=== PATIENT | male | born 1955 | race Two or more races ===

== ENCOUNTER 2025-09-04 07:48 | Inpatient (IN) | payer BC, OTHER ==
[~2025-09-04] VITALS: Ht 167.6 cm; Wt 68.2 kg
--- NOTE | 2025-09-04 09:23 | DVH ---
CLINICAL HISTORY: ams TECHNIQUE: Single view of the chest was obtained. COMPARISON: None FINDINGS: The heart size and pulmonary vasculature are normal. The lungs are clear. IMPRESSION: NO ACUTE CARDIOPULMONARY PROCESS.
[2025-09-04 09:43] LABS: Hematocrit 45.6 % (41.0-53.0); Hemoglobin 15.3 g/dL (13.5-17.5); Mean Corpuscular Hemoglobin 30.9 pg (28.0-32.0); Mean Corpuscular Volume 92.0 fL (80.0-100.0); Nucleated Red Blood Cells % 0.1 %
[2025-09-04 09:54] VITALS: TEMP 97.4; O2SAT 96
[2025-09-04 09:54] LABS: Potassium 4.0 mmol/L (3.5-5.1); Sodium 141 mmol/L (136-145)
[2025-09-04 09:55] LABS: Anion Gap 7 (5-15); Calcium 9.0 mg/dL (8.7-10.4); Carbon Dioxide 25 mmol/L (20-31)
[2025-09-04 09:58] LABS: Chloride 109 mmol/L (98-107)
[2025-09-04 10:00] LABS: BUN/Creatinine Ratio 19.7 (10.0-20.0); Blood Urea Nitrogen 15 mg/dL (9-23)
[2025-09-04 10:04] LABS: Glucose 120 mg/dL (74-106)
--- NOTE | 2025-09-04 10:12 | ED.PDOC ---
History of Present Illness HPI Comments 70-year-old male brought in by ambulance with a prior medical history of PE four years ago and the chief complaint of chest pain. Patient reports on having sternal chest pain since last night associated with N/V x2 episodes of emesis. Patient was tachycardic on scene with a heart rate of 144, at rest. Patient's states on having had a 9/10 sternal chest pain in the which began again this morning while he was driving having him to thread puller and call 911. Patient notes on having dizziness as well. Denies any other symptoms at this time. Denies chills, fever, /D. No other associated symptoms, modifiers, recent injuries or sick contacts present at this time. Chief Complaint: Chest Pain Time Seen by MD: 10:00 Reviewed Notes: Nurses Notes, Medications, Allergies Allergies: Coded Allergies: NO KNOWN ALLERGIES (Unverified , 09/04/25) Information Source: Patient Mode of Arrival: EMS Severity: Moderate Timing: Hours Duration: Since onset, Hours Prehospital treatment: None Past Medical History PAST MEDICAL HISTORY: PE (Four years ago) Surgical History: Denies all surgeries Family History Family History: Reviewed,noncontributory to illness, Unknown Social History Smoker: Non-Smoker Alcohol: Denies ETOH Use Drugs: Denies Drug Use Lives In: Home Constitutional: denies: chills, diaphoresis, fatigue, fever, malaise, sweats, weakness, others EENTM: denies: blurred vision, double vision, ear bleeding, ear discharge, ear drainage, ear pain, ear ringing, eye pain, eye redness, hearing loss, mouth zach n, mouth swelling, nasal discharge, nose bleeding, nose congestion, nose pain, photophobia, tearing, throat pain, throat swelling, voice changes, others Respiratory: denies: cough, hemoptysis, orthopnea, SOB at rest, shortness of breath, SOB with excertion, stridor, wheezing, others Cardiovascular: reports: chest pain; denies: dizzy spells, diaphoresis, Dyspnea on exertion, edema, irregular heart beat, left arm pain, lightheadedness, palpitations, PND, syncope, others Gastrointestinal: denies: abdomen distended, abdominal pain, blood streaked bowels, constipated, diarrhea, dysphagia, difficulty swallowing, hematemesis, melena, nausea, poor appetite, poor fluid intake, rectal bleeding, rectal pain, vomiting, others Genitourinary: denies: burning, dysuria, flank pain, frequency, hematuria, incontinence, penile discharge, penile sore, pain, testicle pain, testicle swelling, urgency, others Neurological: reports: dizziness; denies: fainting, headache, left sided numbness, left sided weakness, numbness, paresthesia, pre-existing deficit, right sided numbness, right sided weakness, seizure, speech problems, tingling, tremors, weakness, others Musculoskeletal: denies: back pain, gout, joint pain, joint swelling, muscle pa in, muscle stiffness, neck pain, others Integumetry: denies: bruises, change in color, change in hair/nails, dryness, laceration, lesions, lumps, rash, wounds, others Allergic/Immunocompromised: denies: Difficulty Healing, Frequent Infections, Hives, Itching, others Hematologic/Lymphatic: denies: anemia, blood clots, easy bleeding, easy bruising, swollen glands, others Endocrine: denies: excessive hunger, excessive sweating, excessive thirst, excessive urination, flushing, intolerance to cold, intolerance to heat, unexplained weight gain, unexplained weight loss, others Psychiatric: denies: anxiety, bipolar disorder, depression, hopeless, panic disorder, schizophrenia, sleepless, suicidal, others All Other Systems: Reviewed and Negative Physical Exam General Appearance: No Apparent Distress, Normal HEENT: Normal ENT Inspection, Pharynx Normal, TMs Normal Neck: Full Range of Motion, Non-Tender, Normal, Normal Inspection Respiratory: Chest Non-Tender, Lungs Clear, No Accessory Muscle Use, No Respiratory Distress, Normal Breath Sounds Cardiovascular: No Edema, No JVD, No Murmur, No Gallop, Normal Peripheral Pulses, Regular Rate/Rhythm Breast Exam: Deferred Gastrointestinal: No Organomegaly, Non Tender, No Pulsatile Mass, Normal Bowel Sounds, Soft Genitalia: Deferred Pelvic: Deferred Rectal: Deferred Extremities: No calf tenderness, Normal capillary refill, Normal inspection, Normal range of motion, Non-tender, No pedal edema Musculoskeletal : Apperance: Normal Neurologic: Alert, printed circuit boards stripper etcher II-XII nml as Tested, No Motor Deficits, Normal Affect, Normal Mood, No Sensory Deficits Cerebellar Function: Normal Reflexes: Normal Skin: Dry, Normal Color, Warm Lymphatic: No Adenopathy Was a procedure done? Was a procedure done?: No Differential Dx Considerations may include: ACS, CVA, viral syndrome X-Ray, Labs, Meds, VS Vital Signs Date Time Temp Pulse Resp B/P (MAP) Pulse Ox O2 Delivery O2 Flow Rate FiO2 09/04/25 09:54 97.4 68 20 151/95 (113) 96 97.4 09/04/25 09:54 68 20 96 Room Air 09/04/25 08:14 97.9 70 15 163/86 93 97.9 09/04/25 07:54 73 Lab Test 09/04/25 09:15 Range/Units White Blood Count 7.2 4.4-10.8 10^3/uL Red Blood Count 4.96 4.5-5.90 10^6/uL Hemoglobin 15.3 13.5-17.5 g/dL Hematocrit 45.6 41.0-53.0 % Mean Corpuscular Volume 92.0 80.0-100.0 fL Mean Corpuscular Hemoglobin 30.9 28.0-32.0 pg Mean Corpuscular Hemoglobin Concent 33.6 32.0-36.0 g/dL Red Cell Distribution Width 13.9 11.8-14.3 % Platelet Count 290 140-450 10^3/uL Mean Platelet Volume 7.0 6.9-10.8 fL Neutrophils (%) (Auto) 70.5 37.0-80.0 % Lymphocytes (%) (Auto) 17.5 10.0-50.0 % Monocytes (%) (Auto) 8.4 0.0-12.0 % Eosinophils (%) (Auto) 2.5 0.0-7.0 % Basophils (%) (Auto) 1.1 0.0-2.0 % Neutrophils # (Auto) 5.1 1.6-8.6 10 ^3/uL Lymphocytes # (Auto) 1.3 0.4-5.4 10 ^3/uL Monocytes # (Auto) 0.6 0-1.3 10 ^3/uL Eosinophils # (Auto) 0.2 0-0.8 10 ^3/uL Basophils # (Auto) 0.1 0-0.2 10 ^3/uL Nucleated Red Blood Cells 0.1 % Sodium Level 141 136-145 mmol/L Potassium Level 4.0 3.5-5.1 mmol/L Chloride Level 109 H 98-107 mmol/L Carbon Dioxide Level 25 20-31 mmol/L Anion Gap 7 5-15 Blood Urea Nitrogen 15 9-23 mg/dL Creatinine 0.76 0.700-1.30 mg/dL Glomerular Filtration Rate Calc 98 >90 mL/min BUN/Creatinine Ratio 19.7 10.0-20.0 Serum Glucose 120 H 74-106 mg/dL Lactic Acid Level 0.9 0.4-2.0 mmol/L Calcium Level 9.0 8.7-10.4 mg/dL Troponin I High Sensitivity 6 </=54 ng/L Time of 1ST Reevaluation: 10:30 Reevaluation 1ST: Unchanged Patient Education/Counseling: Diagnosis, Treatment, Prognosis Family Education/Counseling: No Family Present SEPSIS Sepsis Screen Date sepsis recognized/suspect: Sep 04, 2025 Time Sepsis recognized/suspect: 749 Recent Procedure: No On Antibiotic Therapy: No Respiratory Rate >20: Yes Heart Rate >90: Yes Temp<36 C (96.8 F) or >38.3 C: No SBP <90 or MAP <65 mmHG: No New Acute Mental Status Change: No Is the patient on CPAP, BIPAP,: No Physician Orders Electrocardigram (09/04/25 08:17) Electrocardigram (09/04/25 09:17) Electrocardigram (09/04/25 11:17) Urinalysis (09/04/25 08:18) Chest Portable (09/04/25 08:18) Troponin-I Hs (09/04/25 09:18) Troponin-I Hs (09/04/25 11:18) Blood Culture (09/04/25 08:20) Vital Signs Date Time Temp Pulse Resp B/P (MAP) Pulse Ox O2 Delivery O2 Flow Rate FiO2 09/04/25 09:54 97.4 68 20 151/95 (113) 96 97.4 09/04/25 09:54 68 20 96 Room Air 09/04/25 08:14 97.9 70 15 163/86 93 97.9 09/04/25 07:54 73 Laboratory Tests Test 09/04/25 09:15 Lactic Acid Level 0.9 mmol/L (0.4-2.0) White Blood Count 7.2 10^3/uL (4.4-10.8) Departure 1 Departure Time of Disposition: 10:14 (? High Complexity ProblemsAcute illness posing threat to life or bodily function (suspected ACS)? High Complexity DataMultiple unique labsIndependent interpretation of X-ray and EKGDiscussion/coordination of care with admitting team? High Risk of Morbidity/MortalityDecision regarding hospitalizationCritical care performedPotential for sudden deteriorationMEDICAL DECISION MAKING (HIGH COMPLEXITY LEVEL 5):The patient presents with acute chest pain highly concerning for acute coronary syndrome (ACS), an acute illness with potential for significant morbidity and mortality. Despite a normal initial diagnostic workup, ACSincluding unstable anginacannot be excluded and remains the leading concern.Data Reviewed / Independent Interpretation:I independently reviewed and interpreted all labs and imaging. CBC and BMP were within normal limits. High-sensitivity troponin was normal, but a single normal value does not exclude ACS. Chest X-ray was independently reviewed by me and demonstrated no acute cardiopulmonary abnormalities. I independently reviewed the EKG, which showed normal sinus rhythm without ischemic changes.Despite these benign findings, the patient continues to describe exertional and pressure-like chest pain radiating in a pattern consistent with possible ACS. Unstable angina may present with normal biomarkers and nondiagnostic EKGs, and therefore this diagnosis remains a high-risk, active consideration.Differential Diagnosis & Management:The differential included ACS/unstable angina, pulmonary embolism, aortic dissection, pneumothorax, arrhythmia, and esophageal or musculoskeletal etiologies. Given the symptom pattern and cardiac risk profile, ACS remains the most concerning and cannot be safely ruled out in the ED. Serial troponins, telemetry monitoring, and further cardiac evaluationincluding possible stress testing or cardiology consultationare medically necessary.Risk / Disposition:Due to the ongoing concern for evolving cardiac ischemia, the inability to exclude ACS at this stage, and the potential for rapid deterioration, I determined that inpatient admission is required for continued monitoring and further diagnostic evaluation. I discussed the case and plan of care with the admitting inpatient team. The patient understands and agrees with admission.CRITICAL CARE TIME: Thirty-eight MINUTESA total of 38 minutes of critical care time was provided, exclusive of separately billable procedures. Time was spent in high-intensity evaluation and management due to the risk of sudden clinical deterioration from suspected ACS. Activities included:Continuous cardiac monitoringSerial reassessment of vital signs and symptomsIndependent interpretation of EKG and imagingReview and integration of diagnostic dataCoordination of care and discussion with nursing and the admitting serviceDevelopment of treatment and monitoring planFrequent bedside reassessmentsCritical care services were medically necessary due to the immediate potential for life-threatening cardiac ischemia.) Impression: Primary Impression: Acute chest pain Additional Impression: Shortness of breath Disposition: ADMITTED INPATIENT Admit to: Tele Condition: Guarded Critical Care Note Critical Care Time?: Yes Stability Stability form required: No Heart Score Heart Score: Heart Score Response (Comments) Value History Moderate Suspicious 1 EKG Repolarization Disturb 1 Age >65 2 Risk Factors >3 or Hx ASHD 2 Troponin 1-2 x's Normal limit 1 Total 7 I personally scribed for PER HURST MD ([email or web address]) on 09/04/25 at 10:12. El ectronically submitted by Tim Rene ([email or web address]). PER HURST MD Sep 04, 2025 10:12
[2025-09-04] MEDS: ONDANSETRON HCL 4 MG/2 ML VIAL IV ONE (10:37)
[2025-09-04 10:38] VITALS: BP 151/95; PULSE 68; RESP 20
[2025-09-04] MEDS: MORPHINE SULFATE 4 MG/ML SYR/VIAL IV ONE (10:38)
--- NOTE | 2025-09-04 11:31 | DVHHP2 ---
Admitting Diagnosis: Chest pain History of Present Illness 70-year-old male brought in by ambulance with a prior medical history of PE four years ago and the chief complaint of chest pain. Patient reports on having sternal chest pain since last night associated with N/V x2 episodes of emesis. Patient was tachycardic on scene with a heart rate of 144, at rest. Patient's states on having had a 9/10 sternal chest pain in the which began again this morning while he was driving having him to pipe puller and call 911. Patient notes on having dizziness as well. Denies any other symptoms at this time. Denies chills, fever, /D. No other associated symptoms, modifiers, recent injuries or sick contacts present at this time. PAST MEDICAL HISTORY: PE (Four years ago) Surgical History: Denies all surgeries Family History Family History: Reviewed,noncontributory to illness, Unknown Social History Smoker: Non-Smoker Alcohol: Denies ETOH Use Drugs: Denies Drug Use Lives In: Home Allergies: Coded Allergies: NO KNOWN ALLERGIES (Unverified , 09/04/25) Current Medications Current Medications Medications (Trade) Dose Ordered Sig/Alycia Route PRN Reason Start Time Stop Time Status Last Admin Sodium Chloride (Saline Lock Ns) 10 ml Q8HR IV 09/04/25 14:00 Docusate Sodium (Colace Capsule) 100 mg BIDPRN PRN PO FOR CONSTIPATION 09/04/25 11:45 Acetaminophen (Tylenol Tablet) 650 mg Q6HP PRN PO PAIN SCALE 1-3 OR TEMP>100.4 09/04/25 11:45 Acetaminophen/ Hydrocodone Bitart (Isabella 5/325MG Tab) 1 tab Q4HP PRN PO MODERATE PAIN (4-6 PAIN SCALE) 09/04/25 11:45 Hydromorphone HCl (Dilaudid Injection) 0.5 mg Q4HP PRN IV SEVERE PAIN (7-10 PAIN SCALE) 09/04/25 11:45 Ondansetron HCl (Zofran) 4 mg Q4HP PRN IV NAUSEA / VOMITING 09/04/25 11:45 Enoxaparin Sodium (Lovenox) 40 mg DAILY SC 09/05/25 10:00 Nitroglycerin (Ntrostat Sublingual) 0.4 mg Q5MINP PRN SL FOR CHEST PAIN 09/04/25 11:45 Morphine Sulfate 2 mg Q30M PRN IV FOR CHEST PAIN 09/04/25 11:45 Vital Signs Vital Signs Date Time Temp Pulse Resp B/P (MAP) Pulse Ox O2 Delivery O2 Flow Rate FiO2 09/04/25 10:38 68 20 151/95 09/04/25 09:54 97.4 96 97.4 09/04/25 09:54 Room Air Physical Exam General-62 years old male, well nourished well developed. No apparent distress HEENT-atraumatic normocephalic heart-regular rate and rhythm Lungs clear to auscultate Soft nontender nondistended Musculoskeletal-no edema cyanosis Neuro-AO x3, no focal deficits SEPSIS Sepsis Screen Date sepsis recognized/suspect: Sep 04, 2025 Time Sepsis recognized/suspect: 749 Recent Procedure: No On Antibiotic Therapy: No Respiratory Rate >20: Yes Heart Rate >90: Yes Temp<36 C (96.8 F) or >38.3 C: No SBP <90 or MAP <65 mmHG: No New Acute Mental Status Change: No Is the patient on CPAP, BIPAP,: No Physician Orders Electrocardigram (09/04/25 08:17) Electrocardigram (09/04/25 09:17) Electrocardigram (09/04/25 11:17) Urinalysis (09/04/25 08:18) Chest Portable (09/04/25 08:18) Troponin-I Hs (09/04/25 11:18) Blood Culture (09/04/25 08:20) Admit (09/04/25 11:31) Code Status (09/04/25 11:31) Vital Signs .PER UNIT PROTOCOL (09/04/25 11:31) Review Orders With Adm.Md (09/04/25 11:31) Encourage Activity As Tolerate (09/04/25 11:31) Sodium Chloride Lock (Saline Lock Ns) (09/04/25 14:00) Docusate Sodium Capsule (Colace Capsule) (09/04/25 11:45) Acetaminophen Tablet (Tylenol Tablet) (09/04/25 11:45) Notify Md Of Changes From Base (09/04/25 11:31) Advance Directive (09/04/25 11:31) Patient Condition (09/04/25 11:31) Allergies (09/04/25 11:31) Hydrocodone-Acet 5/325mg Tab (Isabella 5/32 (09/04/25 11:45) Hydromorphone Injection (Dilaudid Inject (09/04/25 11:45) Ondansetron Hcl (Zofran) (09/04/25 11:45) Enoxaparin Sodium (Lovenox) (09/05/25 10:00) Nitroglycerin Sublingual (Ntrostat Subli (09/04/25 11:45) Morphine Sulfate Injection (09/04/25 11:45) Stat Ekg For Chest Pain (09/04/25 11:31) Notify Md Of Changes From Base (09/04/25 11:31) Civilian Technician For 24 Hours (09/04/25 11:31) Emergency Dysrhythmia Protocol (09/04/25 11:31) Rhythm Strips Once Every Shift (09/04/25 11:31) Oxygen By Nasal Cannula (09/04/25 11:31) Echo 2d Mode Cardiac Dop (09/04/25 11:31) Vital Signs Date Time Temp Pulse Resp B/P (MAP) Pulse Ox O2 Delivery O2 Flow Rate FiO2 09/04/25 10:38 68 20 151/95 09/04/25 09:54 97.4 68 20 151/95 (113) 96 97.4 09/04/25 09:54 68 20 96 Room Air 09/04/25 08:14 97.9 70 15 163/86 93 97.9 09/04/25 07:54 73 Laboratory Tests Test 09/04/25 09:15 Lactic Acid Level 0.9 mmol/L (0.4-2.0) White Blood Count 7.2 10^3/uL (4.4-10.8) Medications Medications Dose Ordered Sig/Alycia Route Start Time Stop Time Status Last Admin Dose Admin Aspirin 324 mg ONCE ONCE PO 09/04/25 10:15 09/04/25 10:24 DC 09/04/25 10:36 Morphine Sulfate 4 mg ONCE ONCE IV 09/04/25 10:15 09/04/25 10:24 DC 09/04/25 10:38 Ondansetron HCl 4 mg ONCE ONCE IV 09/04/25 10:15 09/04/25 10:24 DC 09/04/25 10:37 Results Labs Test 09/04/25 10:57 09/04/25 09:15 Range/Units Troponin I High Sensitivity 6 </=54 ng/L White Blood Count 7.2 4.4-10.8 10^3/uL Red Blood Count 4.96 4.5-5.90 10^6/uL Hemoglobin 15.3 13.5-17.5 g/dL Hematocrit 45.6 41.0-53.0 % Mean Corpuscular Volume 92.0 80.0-100.0 fL Mean Corpuscular Hemoglobin 30.9 28.0-32.0 pg Mean Corpuscular Hemoglobin Concent 33.6 32.0-36.0 g/dL Red Cell Distribution Width 13.9 11.8-14.3 % Platelet Count 290 140-450 10^3/uL Mean Platelet Volume 7.0 6.9-10.8 fL Neutrophils (%) (Auto) 70.5 37.0-80.0 % Lymphocytes (%) (Auto) 17.5 10.0-50.0 % Monocytes (%) (Auto) 8.4 0.0-12.0 % Eosinophils (%) (Auto) 2.5 0.0-7.0 % Basophils (%) (Auto) 1.1 0.0-2.0 % Neutrophils # (Auto) 5.1 1.6-8.6 10 ^3/uL Lymphocytes # (Auto) 1.3 0.4-5.4 10 ^3/uL Monocytes # (Auto) 0.6 0-1.3 10 ^3/uL Eosinophils # (Auto) 0.2 0-0.8 10 ^3/uL Basophils # (Auto) 0.1 0-0.2 10 ^3/uL Nucleated Red Blood Cells 0.1 % Sodium Level 141 136-145 mmol/L Potassium Level 4.0 3.5-5.1 mmol/L Chloride Level 109 H 98-107 mmol/L Carbon Dioxide Level 25 20-31 mmol/L Anion Gap 7 5-15 Blood Urea Nitrogen 15 9-23 mg/dL Creatinine 0.76 0.700-1.30 mg/dL Glomerular Filtration Rate Calc 98 >90 mL/min BUN/Creatinine Ratio 19.7 10.0-20.0 Serum Glucose 120 H 74-106 mg/dL Lactic Acid Level 0.9 0.4-2.0 mmol/L Calcium Level 9.0 8.7-10.4 mg/dL Primary Diagnosis Chest pain rule out ACS Plan Troponin negative EKG shows no ST segment changes Check echo of the heart and her status for abnormal wall motion Cardiac diet Resume home meds Full code Lovenox for DVT prophylaxis No GI prophylaxis needed Plan discussed with: Patient Problems List: (1) Acute chest pain Status: Acute Date of Service: Sep 04, 2025 Billing Provider: JUANITO GOMEZ MD Common Visit Codes: [id number] INP/OBS CARE (HIGH) JUANITO GOMEZ MD Sep 04, 2025 11:31
[2025-09-04] MEDS ORDERED: DOCUSATE SOD 100 MG CAP PO PRN (11:45)
[2025-09-04] MEDS ORDERED: NITROGLYCERIN 0.4 MG SL TAB SL PRN (11:45)
[2025-09-04] MEDS ORDERED: HYDROmorphone HCL 2 MG/ML VL/or syr IV PRN (11:45)
[2025-09-04] MEDS ORDERED: ACETAMINOPHEN 325 MG TAB PO PRN (11:45)
[2025-09-04] MEDS ORDERED: MORPHINE SULFATE INJ 2 MG/ml SYRG IV PRN (11:45)
[2025-09-04] MEDS ORDERED: ONDANSETRON HCL 4 MG/2 ML VIAL IV PRN (11:45)
[2025-09-04] MEDS ORDERED: HYDROcodone-ACET 5/325MG TAB PO PRN (11:45)
[2025-09-04] MEDS ORDERED: SODIUM CHLOR 0.9% PF (SALINE LOCK) 10ML VIAL/SYR IV SCH (14:00)
[2025-09-04 14:33] LABS: Urine Protein, UAD Negative (Negative)
[2025-09-05] MEDS ORDERED: ENOXAPARIN SOD 40 MG/0.4 ML SYRINGE SC SCH (10:00)
--- NOTE | 2025-09-06 09:28 | ECG ---
[facility] Test Date: 2025-09-04 Test Time: 07:54:04 Pat Name: NELLA SOLIS Department: ED Room: [address] [place] [address] Gender: M Fws Faculty Assistant: taqueria : [id number] Requested By: PER HURST Order Number: [id number] Reading MD: Piero Pardo Measurements Intervals [place] Rate: 73 P: 67 VT: 183 QRS: 45 QRSD: 92 T: 47 QT: 393 QTc: 433 Interpretive Statements Sinus rhythm Electronically Signed On 09-07-2025 17:49:55 PST by Piero Pardo Please click the below link to view image of tracing.
== END 2025-09-04 14:08 | disposition left against medical advice (07) | DRG 311 ==
LOC: ER 07:48 → EDBD 07:48 → OVERFLOW 11:31
PROVIDERS: ADMIT Internal Medicine; ATTEND Internal Medicine
DX: I24.9 Acute ischemic heart disease, unspecified (principal); Z86.711 Personal history of pulmonary embolism
CPT/HCPCS: 36415; 71045; 80048; 81001; 83605; 84484; 85025; 87040; 93005; 96374; 99291; G0378; J2405